=== PATIENT | female | born 2000 | race Hispanic/Latino ===

== ENCOUNTER 2020-08-03 16:21 | Emergency (ER) | payer OTHER ==
[~2020-08-03] VITALS: Ht 157.5 cm; Wt 71.8 kg
[2020-08-03] MEDS ORDERED: SODIUM CHLORIDE 0.9% 1000ML 1,000 ML IV STA (16:52)
[2020-08-03] MEDS ORDERED: SODIUM CHLORIDE 0.9% 1000ML 1,000 ML ONE (17:27)
[2020-08-03] MEDS ORDERED: CEFDINIR300 MG PO (18:25)
[2020-08-03 18:55] VITALS: BP 105/77
== END 2020-08-03 18:54 | disposition home or self-care (01) ==
LOC: FSED 16:36
DX: R55 Syncope and collapse (principal); N39.0 Urinary tract infection, site not specified; E78.5 Hyperlipidemia, unspecified
CPT/HCPCS: 70450; 80053; 81003; 85025; 85610; 99284; J7030

== ENCOUNTER 2021-02-15 11:15 | Emergency (ER) | payer OTHER ==
[~2021-02-15] VITALS: Ht 157.5 cm; Wt 69.0 kg
[~2021-02-15 11:15] MED LIST: CEFDINIR300 MG PO
[2021-02-15] MEDS ORDERED: IBUPROFEN 600 MG TAB PO NR (12:30)
[2021-02-15] MEDS ORDERED: IBUPROFEN 600 MG TAB ONE (12:37)
[2021-02-15] MEDS ORDERED: HYDROCODONE/APAP 5MG-325MG TAB PO ONE (13:45)
[2021-02-15] MEDS ORDERED: HYDROCODONE/APAP 5MG-325MG TAB ONE (13:50)
[2021-02-15] MEDS ORDERED: HYDROCODON-ACE1 EA12 PO (13:52)
[2021-02-15 13:54] VITALS: BP 109/80
[2021-02-15] MEDS ORDERED: IBUPROFEN600 MG PO (13:54)
== END 2021-02-15 14:15 | disposition home or self-care (01) ==
LOC: FSED 11:38
DX: S92.355A Nondisplaced fracture of fifth metatarsal bone, left foot, initial encounter for closed fracture (principal); S93.402A Sprain of unspecified ligament of left ankle, initial encounter; X50.1XXA Overexertion from prolonged static or awkward postures, initial encounter; Y93.01 Activity, walking, marching and hiking; Y92.008 Other place in unspecified non-institutional (private) residence as the place of occurrence of the external cause
CPT/HCPCS: 81025; 99284